=== PATIENT | female | born 1955 | race Caucasian/White ===

== ENCOUNTER 2019-09-27 02:51 | Observation (INO) ==
[2019-09-27 03:22] LABS: Hematocrit 44.4 % (37.0-47.0); Hemoglobin 14.7 gm/dL (12.5-16.0); Mean Cell Volume 93.9 fl (78-100); Mean Corpuscular Hemoglobin 31.1 pg (27-31); Mean Corpuscular Hgb Conc 33.1 g/dl (32-36); Neutrophil # 2.9 K/mm3 (1.3-6.0); Neutrophil % 37.7 % (42-75.0); Platelet Count 304 K/mm3 (150-450); Red Blood Count 4.73 M/mm3 (4.2-5.4); Red Cell Distribution Width 14.7 % (11.5-14.0); White Blood Count 7.7 K/mm3 (4.0-10.5)
[2019-09-27] MEDS ORDERED: NITROGLYCERIN 0.4 MG/TAB BTL SL ONE (03:28)
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
[2019-09-27 03:40] LABS: ALT 42 U/L (19-67); AST 24 U/L (0-48); Albumin * 3.7 gm/dl (3.4-5.0); Alkaline Phosphatase * 121 U/L (50-170); Anion Gap 14.6 mmol/L (6.8-13.8); BUN/Creatinine Ratio 10.7 (9.0-21.6); Bilirubin, Total 0.4 mg/dL (0.0-1.1); Blood Urea Nitrogen 12 mg/dL (3-23); Ca. Corrected For Albumin 10.1 mg/dL (8.4-10.2); Calcium * 10.2 mg/dL (7.9-10.9); Carbon Dioxide 28.5 mmol/L (24-32.6); Chloride 101 mmol/L (97-106); Glucose * 150 mg/dL (70-110); Potassium 4.1 mmol/L (3.4-4.6); Sodium 140 mmol/L (132-142); Total Protein 7.4 gm/dL (6.2-8.2); Troponin I Less than 0.017 ng/mL (0.00-0.10)
[2019-09-27] MEDS ORDERED: ROSUVASTATIN CALCIUM 20 MG TABLET PO STA (04:42)
[2019-09-27] MEDS ORDERED: LOSARTAN POTASSIUM 50 MG TABLET PO SCH (10:00)
[2019-09-27] MEDS ORDERED: SERTRALINE HCL 50 MG TABLET PO SCH ×2 (10:00→21:00)
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
[2019-09-27 15:14] VITALS: BP 116/72
[2019-09-28] MEDS ORDERED: PANTOPRAZOLE SODIUM 40 MG TABLET.EC PO SCH (07:00)
== END 2019-09-27 15:10 | disposition home or self-care (01) ==
LOC: ER 02:51 → MS 02:51
PROVIDERS: ADMIT Family Medicine; ATTEND Family Medicine
CPT/HCPCS: 36415; 71020; 71046; 80053; 84484; 85025; 93005; 99285